=== PATIENT | male | born 1980 | race Caucasian/White ===

== ENCOUNTER 2024-09-01 15:46 | Emergency (ER) | payer OTHER, SELFPAY ==
[2024-09-01] VITALS (7 sets, daily range): BP systolic 122–144; BP diastolic 68–96; PULSE 81–107; RESP 14–18; TEMP 36.7; O2SAT 98–100
--- NOTE | ~2024-09-01 | XR_ITS ---
CHEST RADIOGRAPH, PA AND LATERAL CLINICAL HISTORY: sob . COMPARISON: None available TECHNIQUE: PA and lateral views of the chest. FINDINGS The cardiomediastinal silhouette is unremarkable. The lungs are clear. Visualized osseous structures and soft tissues are unremarkable. IMPRESSION: No focal infiltrate or effusion. Reviewed, dictated and finalized at location A.
--- OUTSIDE RECORDS SUMMARY | 2024-09-01 15:48 | XMS_ITS | Referral Summary ---
Author Organization [facility] Address [address] [facility] [address] [place] [address] Phone Care Team Providers Care Technology Infusion Specialist Name Role Phone Jerald Merchant MD Primary Care Provider [phone] Allergies No known active allergies Medications No known medications Active Problems Problem Noted Date Diagnosed Date Annual physical exam 08/25/2022 Immunizations Immunization Administration Dates Next Due Influenza, Quadrivalent, Spl it, Preservative Free, Intramuscular 02/12/2022,11/18/2019 Influenza, Trivalent, IM (MDV) 12/21/2020,2012 Influenza, Unspecified 12/19/2021 Tdap 09/21/2020 Social History Tobacco Use Types Packs/Day Years Used Date Smoking Tobacco: Never Smokeless Tobacco: Never PHQ-2 Answer Date Recorded PHQ-2 Total Score (If total score is 3 or more points, staff should administer the PHQ-9) 0 08/25/2022 Personal Safety Answer Date Recorded Getting School Help Needed Not on file 03/28 Sex and Gender Information Value Date Recorded Sex Assigned at Not on file Legal Sex Male 10:25 AM CDT Gender Identity Not on file Sexual Orientation Not on file Last Filed Vital Signs Vital Sign Reading Time Taken Comments Blood Pressure 110/74 08/25/2022 9:07 AM CDT Pulse 93 08/25/2022 9:07 AM CDT Temperature - - Respiratory Rate 16 08/25/2022 9:07 AM CDT Oxygen Saturation 97% 08/25/2022 9:07 AM CDT Inhaled Oxygen Concentration - - Weight 69.2 kg (152 lb 8 oz) 08/25/2022 9:07 AM CDT Height 182.9 cm (6') 08/25/2022 9:07 AM CDT Body Mass Index 20.68 08/25/2022 9:07 AM CDT Plan of Treatment Not on file Insurance [facility] Address: [address] [address] [place] [address] [facility]O Address: [address] [address] [place] [address] Care Teams Technology Infusion Specialist Relationship Specialty Start Date End Date Jerald Merchant MD PCP - General Family Medicine 08/25/22
--- OUTSIDE RECORDS SUMMARY | 2024-09-01 15:48 | XMS_ITS | Continuity of Care Document ---
Author Organization [facility] Address [address] [place] [address] [address] [place] [address] Phone Care Team Providers Care Senior Contract Specialist Name Role Phone Nunez OD, Tej Unavailable Unavailable Procedures Procedure Date Eye Exam & Treatment Refraction Contact Lens Hydrophilic, Spherical [facility] Eye Exam & Treatment Refraction CL Replacement - Vist[facility] Other [address] [facility] No Charge Contact Lens Check CL Replacement - [facility] Disp W/BW Soft [facility] Eye Exam & Treatment Refraction Advance Directives Directive Yes / No Effective Date File Name No Information Encounters Encounter Description Practice Location Reason(s) For Visit Diagnoses Date Provider Providers Copied on Encounter [facility], [address] [place] [address] [address], [place], [place], [id number], tel:[phone] [facility] No Information 3-201 0 Nunez OD Tej. [address] , [address], [place], [address], [place]. tel:[phone] [facility], [address] [place] [address] [address], [place], [place], [id number], [place] tel:[phone] [facility] No Information 5-200 8 Nunez OD Tej. [address] , [address], [place], [address], [place]. tel:[phone] [facility], [address], [place], [place], [id number], [place] tel:[phone] [facility] No Information Oct-2 7-200 7 Nunez OD Tej. [address] , [address], [place], [address], . tel:[phone] [facility], [address], [place], [place], [id number], [place] tel:[phone] [facility] No Information Oct-1 3-200 7 Nunez OD Tej. [address] , [address], [place], [address], [place]. tel:[phone] Family History Family Member Type Diagnosis Age At Onset No Information Payers Payer name Insurance type Covered alliance party ID Authoriza tion(s) No Information Social History Type Description Quantity Date Captured Comments Sex Male Smoking Status No Information Chief Complaint And Reason For Visit No Information Reason For Referral Reason For Referral No Information History Of Present Illness Encounter Date Complaint History Of Prese nt Illness No Information Functional Status Date Functional Assessmen t No Information Instructions Date Instruction Additional Infor mation No Information Assessments Type Assessment Date No Information Patient Care Teams Name Effective Dates (start - stop) Status Members No Information
--- OUTSIDE RECORDS SUMMARY | 2024-09-01 15:48 | XMS_ITS | Clinical Summary ---
Author Organization [facility] Address [address] [facility] [address] [place] [address] Phone Care Team Providers Care Job Superintendent Name Role Phone Jerald Merchant MD Primary Care Provider [phone] Allergies No known active allergies Medications No known medications Active Problems Problem Noted Date Diagnosed Date Annual physical exam 08/25/2022 Immunizations Immunization Administration Dates Next Due Influenza, Quadrivalent, Spl it, Preservative Free, Intramuscular 02/12/2022,11/18/2019 Influenza, Trivalent, IM (MDV) 12/21/2020,2012 Influenza, Unspecified 12/19/2021 Tdap 09/21/2020 Surgical History Surgery Date Site/Laterality Comments NASAL SEPTUM SURGERY Medical History Medical History Date Comments Anxiety Social History Tobacco Use Types Packs/Day Years [...] on file Sexual Orientation Not on file Obstetrics History Last Filed Vital Signs Vital Sign Reading [...] 08/25/2022 9:07 AM CDT Plan of Treatment Health Maintenance Due Date Last Done Comments Hepatitis C Screening 1982 Hepatitis B Screening 2000 Depression Screening 08/26/2023 08/25/2022 Regular Well Visit/Exam 18-64 08/26/2023 08/25/2022 Covid-19 Vaccine ( season) 2023 02/12/2022, 12/21/2020, 05/12/2020, Additional history exists Influenza Vaccine (Season Ended) 2024 02/12/2022, 12/19/2021, 12/21/2020, Additional history exists DTaP/Tdap/Td Vaccine (2 - Td or Tdap) 09/21/2030 09/21/2020 HPV Vaccines Aged Out No longer eligi ble based on patient's age to complete this topic Pneumococcal vaccine <65 Aged Out No longer eligible based on patient's age to complete this topic Varicella Vaccines Discontinued Insurance [facility] CHOICE PLUS [facility] CHOICE PLUS Care Teams Job Superintendent Relationship Specialty Start Date End Date Jerald Merchant MD PCP - General Family Medicine 08/25/22
--- OUTSIDE RECORDS SUMMARY | 2024-09-01 15:48 | XMS_ITS | Clinical Summary ---
Author Organization [facility] Address [address] [place] [address] Care Team Providers Care Mini Baccarat Dealer Name Role Phone Nghia Santana MD Primary Care Provider [phone] Source Comments [facility],non-owned Affiliates and Associated Physician Practices is amultiple site organization consisting of ambulatory clinics and hospital sitesin [place], [place], [place] and [place]. This disclosure is being madepursuant to the Care Everywhere program and may not contain all information available regarding this patient. Last updated 17.[facility] Allergies No known active allergies Medications * Be aware that medications may not be up to date on this document. Alwaysverify current medications with the patient. No known medications Immunizations Immunization Administration Dates Next Due INFLUENZA VACCINE, QUADR. (F LUZONE; FLULAVAL; FLUARIX; AFLURIA QUADRIVALENT; 6MO+), 0.5 ML (IIV4) 11/18/2019 TDAP (7yrs+) 09/21/2020 Social History Tobacco Use Types Packs/Day Years Used Date Smoking Tobacco: Never Smokeless Tobacco: Never Sex and Gender Information Value Date Recorded Sex Assigned at Not on file Legal Sex Male 4:33 PM CDT Gender Identity Not on file Sexual Orientation Not on file Last Filed Vital Signs Vital Sign Reading Time Taken Comments Blood Pressure 118/74 05/18/2019 9:17 AM LIVE IN CAREGIVER Pulse 94 05/18/2019 9:17 AM LIVE IN CAREGIVER Temperature 36.7 C (98.1 F) 05/18/2019 9:17 AM LIVE IN CAREGIVER Respiratory Rate 16 05/18/2019 9:17 AM LIVE IN CAREGIVER Oxygen Saturation 96% 05/18/2019 9:17 AM LIVE IN CAREGIVER Inhaled Oxygen Concentration - - Weight 70.3 kg (155 lb) 05/18/2019 9:17 AM LIVE IN CAREGIVER Height 182.9 cm (6') 05/18/2019 9:17 AM LIVE IN CAREGIVER Body Mass Index 21.02 05/18/2019 9:17 AM LIVE IN CAREGIVER Plan of Treatment Health Maintenance Due Date Last Done Comments LIPID TESTING 1982 HIV SCREENING 1997 HEPATITIS C SCREENING 06/21/2000 HEPATITIS B VACCINE (1 of 3 - 19+ 3-dose series) 2001 COVID-19 VACCINE (3 - 2023-2 5 season) 2023 05/12/2020, 04/18/2020 DEPRESSION SCREENING 03/21/2024 INFLUENZA VACCINE (Season Ended) 2024 11/18/2019, 02/07/2013 DTAP/TDAP/TD VACCINES (2 - T d or Tdap) 09/21/2030 09/21/2020 ZOSTER VACCINE (1 of 2) 2032 HIB VACCINE Aged Out No longer eligi ble based on patient's age to complete this topic HPV VACCINE Aged Out No longer eligi ble based on patient's age to complete this topic MENINGOCOCCAL (Group B) VACCINE SHARED DECISION-MAKING Aged Out No longer eligible based on patient's age to complete this topic MENINGOCOCCAL GROUPS A/C/Y/W VACCINE Aged Out No longer eligible b ased on patient's age to complete this topic PNEUMOCOCCAL VACCINE Aged Out No long er eligible based on patient's age to complete this topic Insurance Care Teams Mini Baccarat Dealer Relationship Specialty Start Date End Date Nghia Santana MD [address] [place] [address] PCP - General Family Medicine 12/08/18
--- NOTE | 2024-09-01 15:51 | ECG_ITS ---
Test Date: 2024-09-01 16:02:37 Measurements Intervals [place] Rate: 89 P: 48 CT: 123 QRS: 56 QRSD: 103 T: 65 QT: 354 QTc: 431 Interpretive Statements SINUS RHYTHM BASELINE ARTIFACT- I, II, AVR, AVL, AVF NORMAL ECG No previous ECG available for comparison Electronically Signed On 09-01-2024 20:54:02 CDT by Adiel Sanchez D.O.
[2024-09-01 16:00] LABS: Basophils Percent Auto 0.4 % (0.2-1.2); Eosinophils Absolute Auto 0.1 K/mm3 (0-0.3); Eosinophils Percent Auto 0.7 % (0-4.4); Hematocrit 42.1 % (42.0-52.0); Hemoglobin 14.5 g/dL (14.0-18.0); Immature Granulocyte Absolute 0.02 K/mm3 (0.00-0.031); Immature Granulocyte Percent A 0.3 % (0-0.5); Lymphocytes Absolute Auto 1.18 K/mm3 (0.9-3.2); Lymphocytes Percent Auto 16.3 % (18.3-44.2); Mean Corpuscular HGB Conc 34.4 g/dl (32-36); Mean Corpuscular Hemoglobin 33.1 pg (26-34); Mean Corpuscular Volume 96.1 fl (80-100); Mean Platelet Volume 9.2 fl (7.4-10.4); Monocytes Absolute Auto 0.5 K/mm3 (0.1-0.6); Monocytes Percent Auto 7.4 % (2.6-8.5); Neutrophils Absolute Auto 5.4 K/mm3 (1.3-6.7); Neutrophils Percent Auto 74.9 % (45.5-73.1); Platelet Count Result 263 k/mm3 (150-375); Red Blood Count 4.38 M/mm3 (4.6-6.20); Red Cell Distribution Width 13.1 % (11.5-14.5); White Blood Count 7.3 K/mm3 (4.5-10.0)
[2024-09-01] MEDS: ASPIRIN 81 MG CHEWABLE TABLET 324 MG PO (16:00)
--- OUTSIDE RECORDS SUMMARY | 2024-09-01 16:09 | XMS_ITS | Referral Summary ---
Author Organization [facility] Address [address] [facility] [address] [place] [address] Phone Care Team Providers Care Community Placement Worker Name Role Phone Jerald Merchant MD Primary Care Provider [phone] Allergies No known active allergies Medications No [...] Plan of Treatment Not on file Insurance [facility] CHOICE PLUS [facility] CHOICE PLUS Care Teams Community Placement Worker Relationship Specialty Start Date End Date Jerald Merchant MD PCP - General Family Medicine 08/25/22
--- OUTSIDE RECORDS SUMMARY | 2024-09-01 16:09 | XMS_ITS | Clinical Summary ---
Author Organization [facility] Address [address] [facility] [address] [place] [address] Phone Care Team Providers Care Landscape Nurseryman Name Role Phone Jerald Merchant MD Primary Care Provider [phone] Allergies No known active allergies Medications No [...] complete this topic Varicella Vaccines Discontinued Insurance [facility] CHOICE PLUS [facility] CHOICE PLUS Care Teams Landscape Nurseryman Relationship Specialty Start Date End Date Jerald Merchant MD PCP - General Family Medicine 08/25/22
--- OUTSIDE RECORDS SUMMARY | 2024-09-01 16:09 | XMS_ITS | Continuity of Care Document ---
Author Organization [facility] Address [address] [place] [address] [address] [place] [address] Phone Care Team Providers Care Plastics And Composites Inspector Name Role Phone Nunez OD, Tej Unavailable Unavailable Procedures Procedure Date Eye Exam & Treatment Refraction Contact Lens Hydrophilic, Spherical [facility] Eye Exam & Treatment Refraction CL Replacement - [facility] Other [address] [facility] No Charge Contact Lens Check CL Replacement - [facility] Disp W/BW Soft [facility] Eye Exam & Treatment Refraction Advance Directives Directive Yes / No Effective Date File Name No Information Encounters Encounter Description Practice Location Reason(s) For Visit Diagnoses Date Provider Providers Copied on Encounter [facility], [address] [place] [address] [address], [place], [place], [id number], tel:[phone] [facility] No Information 3-201 0 Nunez OD Tej. [address] , [address], [place], [address], [place]. tel:[phone] [facility], [address] [place] [address] [address], [place], [place], [id number], [place] tel:[phone] [facility] No Information 5-200 8 Nunez OD Tej. [address] , [address], [place], [address], [place]. tel:[phone] [facility], [address], [place], [place], [id number], [place] tel:[phone] [facility] No Information Oct-2 7-200 7 Nunez OD Tej. [address] [facility] , [address], [place], [address], . tel:[phone] [facility], [address], [place], [place], [id number], [place] tel:[phone] [facility] No Information Oct-1 3-200 7 Nunez OD Tej. [address] [facility] , [address], [place], [address], [place]. tel:[phone] Family History Family Member Type Diagnosis Age At Onset No Information Payers Payer name Insurance type Covered constitution party ID Authoriza tion(s) No Information Social [...]
--- OUTSIDE RECORDS SUMMARY | 2024-09-01 16:09 | XMS_ITS | Clinical Summary ---
Author Organization [facility] Address [address] [place] [address] Care Team Providers Care Bread Baker Name Role Phone Nghia Santana MD Primary Care Provider [phone] [facility],non-owned Affiliates and Associated Physician Practices is amultiple site organization consisting of ambulatory clinics and hospital sitesin [place], [place], [place] and [place]. This disclosure is being madepursuant to the Care Everywhere program and may not contain all information available regarding this patient. Last updated 17.[facility] Allergies No known active allergies Medications * [...] Comments Blood Pressure 118/74 05/18/2019 9:17 AM DELI CLERK Pulse 94 05/18/2019 9:17 AM DELI CLERK Temperature 36.7 C (98.1 F) 05/18/2019 9:17 AM DELI CLERK Respiratory Rate 16 05/18/2019 9:17 AM DELI CLERK Oxygen Saturation 96% 05/18/2019 9:17 AM DELI CLERK Inhaled Oxygen Concentration - - Weight 70.3 kg (155 lb) 05/18/2019 9:17 AM DELI CLERK Height 182.9 cm (6') 05/18/2019 9:17 AM DELI CLERK Body Mass Index 21.02 05/18/2019 9:17 AM DELI CLERK Plan of Treatment Health Maintenance Due Date [...] to complete this topic Insurance Care Teams Bread Baker Relationship Specialty Start Date End Date Nghia Santana MD [address] [place] [address] PCP - General Family Medicine 12/08/18
[2024-09-01 16:11] LABS: Alanine Aminotransferase 39 U/L (6-50); Albumin Level 4.6 g/dL (3.5-5.1); Alkaline Phosphatase 64 U/L (38-126); Anion Gap 8 mmol/L (4-12); Aspartate Amino Transferase 47 U/L (17-59); Blood Urea Nitrogen 11 mg/dL (9-20); Carbon Dioxide 23 mmol/L (22-30); Chloride 107 mmol/L (98-107); Estimated CRCL calculation 123 ml/min; Estimated Glomerular Filt Rate > 60; Glucose 127 mg/dL (65-110); Lipase 83 U/L (23-300); Potassium 4.3 mmol/L (3.4-5.0); Sodium 138 mmol/L (137-145); Total Protein 7.5 g/dL (6.3-8.2)
[2024-09-01 16:16] LABS: Partial Thromboplastin Time 23.4 Seconds (22.3-36.8); Prothrombin Time 12.7 Seconds (11.1-14.7)
[2024-09-01 16:23] LABS: Troponin I < 0.012 ng/mL (0.000-0.034)
[2024-09-01] MEDS: LACTATED RINGERS 1,000 ML 999 ML IV CONT (16:30)
--- NOTE | 2024-09-01 16:32 | ED_ITS ---
HPI - General Adult General Chief complaint: Shortness of Breath/Dyspnea Stated complaint: shortness of breath Time Seen by Provider: 09/01/24 15:54 History of Present Illness HPI narrative: 44-year-old male present to the emergency department for evaluation for sensation of rapid heart rate and shortness of breath. Patient states symptoms started few hours ago have since resolved. Patient states that he was drinking for the majority of the day yesterday. Patient states this is not usual for him. Patient denies any chest pain or current shortness of breath. Patient denies any prior history of PE or DVT. Patient denies any history of cancer denies any falls or injuries. Patient denies any calf tenderness. Patient denies any hormone replacement. Related Data Home Medications ?Medication ?Instructions ?Recorded ?Confirmed ?Last Taken ?Type No Home Medications 10/12/19 Unknown History Allergies Allergy/AdvReac Type Severity Reaction Status Date / Time No Known Allergies Allergy Unverified 09/01/24 15:47 Review of Systems 2 Review of Systems: All systems reviewed & are unremarkable except as noted in HPI and below PMFSH Social History Social History Smoking status: Never smoker Second hand tobacco smoke exposure: No Alcohol intake: current Drinks per week: 3 Substance use: never Substance use type: does not use Living arrangements: alone Occupation/Education: occupation Gender identity (if verbalized by the patient): Male Exam 2 Narrative: APPEARANCE: Well appearing, no pain, no distress, well-nourished. HEAD: normocephalic, atraumatic. EYES: PERRLA/EOMI, conjunctivae clear. NOSE: Normal no drainage EARS:TMS clear with good light reflex. THROAT: Pharynx clear, no exudate. NECK: Supple. No adenopathy, no masses. RESPIRATORY: Airway patent, respirations nonlabored. Clear to auscultation bilaterally, no rales, rhonchi, wheezing. CARDIOVASCULAR: Regular rate and rhythm without murmurs rubs or gallops. ABDOMINAL: Soft, nontender, nondistended, normal bowel sounds MUSCULOSKELETAL: Moves all extremities. Strength/ROM intact, No edema, No calf tenderness. NEURO: Alert. Cranial nerves II through XII intact. Grossly intact SKIN: Warm, dry. Normal Color Course Vital Signs Vital signs: Vital Signs Pulse Rate 97 09/01/24 15:51 Respiratory Rate 14 09/01/24 15:51 Blood Pressure 144/96 H 09/01/24 15:51 Pulse Oximetry 98 09/01/24 15:51 Temperature 98.1 F 09/01/24 15:54 Pulse Rate 85 09/01/24 17:44 Respiratory Rate 16 09/01/24 17:44 Blood Pressure 134/86 09/01/24 17:44 Pulse Oximetry 100 09/01/24 17:44 Oxygen Delivery Room Air 09/01/24 16:33 Medical Decision Making MDM Narrative Medical decision making narrative: 44-year-old male presents emergency department for evaluation for episode of heart palpitations and exertional fatigue. Patient reports he did drink alcohol last night and suspects he may have been dehydrated. While at rest patient denies any pain or complaints and has no sensation of heart palpitations and has a normal sinus rhythm. Patient is currently afebrile with no leukocytosis and hemoglobin of 14.5. Patient's INR is 1.0. Patient has no acute abnormalities on his CMP. Patient's troponin was negative. Patient denies any associated chest pain. Patient's chest x-ray shows no acute cardiopulmonary abnormality. EKG shows normal sinus rhythm. Patient was mildly orthostatic prior to rehydration but did feel improved after rehydration was able to ambulate at baseline with no complaints. Patient was advised to increase his hydration intake and have close follow-up with his primary care physician for additional outpatient cardiac testing. All questions concerns were addressed. Differential Diagnosis Differential Diagnosis: Dehydration, heart palpitations, SVT, AFib Vital Signs Vital Signs: Vital Signs Pulse Rate 97 09/01/24 15:51 Respiratory Rate 14 09/01/24 15:51 Blood Pressure 144/96 H 09/01/24 15:51 Pulse Oximetry 98 09/01/24 15:51 Temperature 98.1 F 09/01/24 15:54 Pulse Rate 85 09/01/24 17:44 Respiratory Rate 16 09/01/24 17:44 Blood Pressure 134/86 09/01/24 17:44 Pulse Oximetry 100 09/01/24 17:44 Oxygen Delivery Room Air 09/01/24 16:33 Lab Data Lab results reviewed: Yes I reviewed the patient's lab results. 09/01/24 15:55 09/01/24 15:55 Labs: Lab Results 09/01/24 Range/Units 15:55 WBC 7.3 (4.5-10.0) K/mm3 RBC 4.38 L (4.6-6.20) M/mm3 Hgb 14.5 (14.0-18.0) g/dL Hct 42.1 (42.0-52.0) % MCV 96.1 (80-100) fl MCH 33.1 (26-34) pg MCHC 34.4 (32-36) g/dl RDW 13.1 (11.5-14.5) % Plt Count 263 (150-375) k/mm3 MPV 9.2 (7.4-10.4) fl Immature Gran % (Auto) 0.3 (0-0.5) % Neut % (Auto) 74.9 H (45.5-73.1) % Lymph % (Auto) 16.3 L (18.3-44.2) % Tyrrell % (Auto) 7.4 (2.6-8.5) % Eos % (Auto) 0.7 (0-4.4) % Baso % (Auto) 0.4 (0.2-1.2) % Lymph # (Auto) 1.18 (0.9-3.2) K/mm3 Tyrrell # (Auto) 0.5 (0.1-0.6) K/mm3 Eos # (Auto) 0.1 (0-0.3) K/mm3 Baso # (Auto) 0.0 (0.0-0.1) K/mm3 Abs Immat Gran (auto) 0.02 (0.00-0.031) K/mm3 Absolute Neuts (auto) 5.4 (1.3-6.7) K/mm3 Absolute Nucleated RBC 0.000 (0.0-0.012) K/mm3 Nucleated RBC % 0.0 (0.0-0.2) % PT 12.7 (11.1-14.7) Seconds INR 1.0 APTT 23.4 (22.3-36.8) Seconds Sodium 138 (137-145) mmol/L Potassium 4.3 (3.4-5.0) mmol/L Chloride 107 (98-107) mmol/L Carbon Dioxide 23 (22-30) mmol/L Anion Gap 8 (4-12) mmol/L BUN 11 (9-20) mg/dL Creatinine 0.72 (0.7-1.3) mg/dL Estim Creat Clear Calc 123 ml/min Estimated GFR > 60 (59 - ) Glucose 127 H (65-110) mg/dL Calcium 9.0 (8.4-10.2) mg/dL Total Bilirubin 1.0 (0.2-1.3) mg/dL AST 47 (17-59) U/L ALT 39 (6-50) U/L Alkaline Phosphatase 64 (38-126) U/L Troponin I < 0.012 (0.000-0.034) ng/mL Total Protein 7.5 (6.3-8.2) g/dL Albumin 4.6 (3.5-5.1) g/dL Lipase 83 (23-300) U/L Imaging Data Radiologist's impression: Impressions Chest X-Ray 09/01/24 17:05 IMPRESSION: No focal infiltrate or effusion. ECG Data EKG #1: EKG Interpretation: normal rate, sinus rhythm, no ectopy, non-specific ST changes, no ST changes, normal QT and NL axis Discharge Plan Discharge Clinical Impression: Heart palpitations, Dehydration Patient Disposition: Home Condition: Stable Instructions: Antibiotic Form, Dehydration (ED) Additional Instructions: Drink plenty of fluids. Have close follow-up with your primary care physician for additional outpatient cardiac testing. If you have any worsening symptoms then please call or return to the emergency department. Patient Language: German Prescriptions: No Action No Home Medications Follow-up/Referrals: Nghia Santana MD [Primary Care Provider] -
== END 2024-09-01 18:24 | disposition home or self-care (01) ==
PROVIDERS: Emergency Provider Emergency Medicine; PCP Family Medicine
DX: E86.0 Dehydration (principal); R00.2 Palpitations
CPT/HCPCS: 36415; 71046; 80053; 83690; 84484; 85025; 85610; 85730; 93005; 96360; 99284; A9270; J7120